=== PATIENT | male | born 1965 | race Caucasian/White ===

== ENCOUNTER 2020-07-22 09:16 | Inpatient (IN) ==
[2020-07-22] MEDS ORDERED: Ringers Solution, Lactated 1,000 ML IVC SCH ×2 (09:45→14:14)
[2020-07-22] MEDS ORDERED: *HR* OxyCODONE Immed Rel 5 MG TABLET PO PRN ×2 (09:50→14:14)
[2020-07-22] MEDS ORDERED: Ondansetron 4 MG/2 ML VIAL IVP PRN ×2 (09:50→14:14)
[2020-07-22] MEDS ORDERED: *HR* HYDROmorphone PF 0.5 MG/0.5 ML SYRINGE IVP PRN (09:50)
[2020-07-22] MEDS ORDERED: *HR* Labetalol 20 MG/4 ML SYRINGE IVP PRN (09:50)
[2020-07-22] MEDS ORDERED: Promethazine Syrup 6.25 MG/5 ML PO PRN (09:50)
[2020-07-22] MEDS ORDERED: Vancomycin 1,750 MG/517.5 ML IV.SOLN IVPB ONE ×2 (10:20→21:00)
[2020-07-22] MEDS ORDERED: Celecoxib 200 MG CAPSULE PO ONE (10:20)
[2020-07-22] MEDS ORDERED: Famotidine 20 MG/2 ML VIAL IVP ONE (10:20)
[2020-07-22] MEDS ORDERED: Ropivacaine/PF 0.5% 30 ML VIAL ONE (10:59)
[2020-07-22] MEDS ORDERED: *HR* FentaNYL (PF) 100 MCG/2 ML VIAL ONE (11:01)
[2020-07-22] MEDS ORDERED: *HR* Midazolam HCl 2 MG/2 ML VIAL ONE (11:01)
[2020-07-22] MEDS ORDERED: Ondansetron 4 MG/2 ML VIAL ONE (11:22)
[2020-07-22] MEDS ORDERED: Dexamethasone 4 MG/ML VIAL ONE ×2 (11:22→11:57)
[2020-07-22] MEDS ORDERED: *HR* Rocuronium Bromide 50 MG/5 ML VIAL ONE (11:22)
[2020-07-22] MEDS ORDERED: Lidocaine -MPF 2% 2 ML VIAL ONE (11:22)
[2020-07-22] MEDS ORDERED: *HR* Propofol 200 MG/20 ML VIAL IVP ONE (11:24)
[2020-07-22] MEDS ORDERED: *HR* Succinylcholine 200 MG/10 ML VIAL IVP ONE ×2 (11:25→11:57)
[2020-07-22] MEDS ORDERED: Lidocaine HCL 4 ML Topical Solution (Laryng-O-Jet Kit Sterile Pak) TP ONE (11:26)
[2020-07-22] MEDS ORDERED: Lidocaine -MPF 4% 5 ML AMPUL ONE (11:55)
[2020-07-22] MEDS ORDERED: Ethanol\\Acetic Acid\\Na Ace\\Ben 1,000 ML IRRIG.SOLN IR ONE (11:55)
[2020-07-22] MEDS ORDERED: Vancomycin 1,000 MG VIAL ONE (11:55)
[2020-07-22] MEDS ORDERED: Povidone-Iodine 45 ML, Sodium Chloride IRRigation 1,000 ML IR ONE (12:20)
[2020-07-22] MEDS ORDERED: *HR* Vasopressin 20 UNIT/ML VIAL ONE (13:25)
[2020-07-22 13:53] LABS: Hematocrit 41.6 % (37.5-50.1); Hemoglobin 13.8 g/dL (12.9-16.9)
[2020-07-22] MEDS ORDERED: Insulin LISPRO 300 UNITS/3 ML VIAL SQ SCH ×2 (14:14→21:00)
[2020-07-22] MEDS ORDERED: Dextrose Gel 15 GM/37.5 ML TUBE PO PRN ×2 (14:14)
[2020-07-22] MEDS ORDERED: *HR* Dextrose 50 % in Water (Vial) 50 ML VIAL IVP PRN (14:14)
[2020-07-22] MEDS ORDERED: *HR* OxyCODONE/APAP 5/325 TABLET PO PRN (14:14)
[2020-07-22] MEDS ORDERED: MOM Conc 10 ML UD.LIQ PO PRN (14:14)
[2020-07-22] MEDS ORDERED: Sennosides 8.6 MG TABLET PO PRN (14:14)
[2020-07-22] MEDS ORDERED: Naloxone 0.4 MG/ML INJ IVP PRN (14:14)
[2020-07-22] MEDS ORDERED: D5% in Water 1,000 ML IVC PRN (14:14)
[2020-07-22] MEDS ORDERED: Clindamycin 900 MG/50 ML 900 MG/50 ML IV.SOLN IVPB ONE (16:02)
[2020-07-22 16:37] VITALS: BP 109/67
[2020-07-22] MEDS ORDERED: carvediloL 6.25 MG TABLET PO SCH (17:00)
[2020-07-22] MEDS ORDERED: *HR* Enoxaparin 30 MG/0.3 ML SYRINGE SQ SCH ×2 (18:00)
[2020-07-22] MEDS ORDERED: Budesonide/Formoterol 160/4.5 1 PUFF INH IH SCH (22:00)
== END 2020-07-22 18:35 | disposition home or self-care (01) | DRG 483 ==
LOC: SAMDAY 09:16 → 3NENU 14:22
PROVIDERS: ADMIT Orthopaedic Surgery; ATTEND Orthopaedic Surgery